=== PATIENT | female | born 1960 | race Caucasian/White ===

== ENCOUNTER 2021-08-04 06:52 | Day surgery (SDC) | payer BC, OTHER ==
[~2021-08-04 06:52] MED LIST: Lactated Ringers 1,000 ML IV SCH
[2021-08-04] MEDS ORDERED: Propofol 200 MG/20 ML SDV ONE ×3 (07:22→08:58)
[2021-08-04] MEDS ORDERED: fentaNYL 100 MCG/2 ML SDV ONE (07:22)
--- NOTE | 2021-08-04 07:34 | PCM.PREANE ---
Preanesthetic Assessment - Anesthesia/Transfusion/Family Hx Anesthesia History: Prior Anesthesia Without Reaction Family History of Anesthesia Reaction: No Transfusion History: No Prior Transfusion(s) - Review of Systems General: No Symptoms Pulmonary: No Symptoms Cardiovascular: No Symptoms Gastrointestinal: No Symptoms Neurological: No Symptoms Other: Reports: None - Physical Assessment NPO Status Date: 08/04/21 NPO Status Time: 00:00 Vital Signs: Last Vital Signs Temp 97.3 F 08/04/21 07:00 Pulse 70 08/04/21 07:00 Resp 15 08/04/21 07:00 BP 128/65 08/04/21 07:00 Pulse Ox 99 08/04/21 07:00 Height: 5 ft 1 in Weight: 114 lb ASA Class: 2 Mental Status: Alert & Oriented x3 Airway Class: Mallampati = 1 Dentition: Reports: Normal Dentition ROM/Head Extension: Full Lungs: Clear to Auscultation, Normal Respiratory Effort Cardiovascular: Regular Rate, Regular Rhythm - Lab Values: Laboratory Last Values SARS-CoV-2 RNA (BONITA) NEGATIVE (NEGATIVE) 08/04/21 06:12 - Allergies Allergies/Adverse Reactions: Allergies Allergy/AdvReac Type Severity Reaction Status Date / Time No Known Allergies Allergy Verified 07/31/21 08:22 - Acknowledgements Anesthesia Type Planned: General Anesthesia Pt an Appropriate Candidate for the Planned Anesthesia: Yes Alternatives and Risks of Anesthesia Discussed w Pt/Guardian: Yes Pt/Guardian Understands and Agrees with Anesthesia Plan: Yes PreAnesthesia Questionnaire HEENT History: Reports: Other (See Below) Other HEENT History: wears glasses, has bottom partial Cardiovascular History: Reports: None Respiratory History: Reports: None Gastrointestinal History: Reports: GERD Genitourinary History: Reports: None Musculoskeletal History: Reports: None Neurological History: Reports: None Psychiatric History: Reports: None Endocrine/Metabolic History: Reports: None Hematologic History: Reports: None Immunologic History: Reports: None Oncologic (Cancer) History: Reports: None Dermatologic History: Reports: None - Past Surgical History Head Surgeries/Procedures: Reports: None HEENT Surgical History: Reports: None Cardiovascular Surgical History: Reports: None Respiratory Surgical History: Reports: None GI Surgical History: Reports: Colonoscopy, Hernia, Inguinal Female Surgical History: Reports: Hysterectomy, Salpingo-Oophorectomy Endocrine Surgical History: Reports: None Neurological Surgical History: Reports: None Musculoskeletal Surgical History: Reports: None Oncologic Surgical History: Reports: None Dermatological Surgical History: Reports: None - SUBSTANCE USE Tobacco Use Status *Q: Former Tobacco User Tobacco Use Within Last Twelve Months: No - HOME MEDS Home Medications: Home Meds Black Cohosh 40 mg PO DAILY 07/31/21 [History] Cholecalciferol (Vitamin D3) [Vitamin D3] 5,000 units PO DAILY 07/31/21 [History] Clobetasol [Clobetasol Propionate 0.05% Cream] 1 applic TOP ASDIRECTED PRN 07/31/21 [History] Cyanocobalamin (Vitamin B-12) [Vitamin B-12] 1,000 mcg PO DAILY 07/31/21 [History] Estradiol Acetate [Femring] 1 device VAG ONETIME 07/31/21 [History] L.acidoph,Paracasei, B.lactis [Probiotic] 1 tab PO DAILY 07/31/21 [History] Magnesium Oxide [Magnesium] 400 mg PO DAILY 07/31/21 [History] Multivit-Min/Folic Acid/Biotin [Hair, Skin and Nails Caplet] 1 tab PO DAILY 07/31/21 [History] Omeprazole Magnesium [Prilosec Otc] 20 mg PO DAILY 07/31/21 [History] Tolterodine Tartrate 2 mg PO DAILY 07/31/21 [History] - CURRENT (IN HOUSE) MEDS Current Meds: Current Medications Lactated Ringer's (Ringers, Lactated) 1,000 mls @ 125 mls/hr IV ASDIRECTED ALENA Last Admin: 08/04/21 07:32 Dose: 125 mls/hr Documented by: Discontinued Medications Fentanyl (Fentanyl 100 Mcg/2 Ml Sdv) Confirm Administered Dose 100 mcg .ROUTE .STK-MED ONE Stop: 08/04/21 07:23 Lidocaine HCl (Lidocaine 1% 5 Ml Sdv) Confirm Administered Dose 5 ml .ROUTE .STK-MED ONE Stop: 08/04/21 07:23 Propofol (Propofol 200 Mg/20 Ml Sdv) Confirm Administered Dose 400 mg .ROUTE .STK-MED ONE Stop: 08/04/21 07:23
[2021-08-04] MEDS ORDERED: ePHEDrine 50 MG/ML SDV ONE (08:12)
[2021-08-04] MEDS ORDERED: Lactated Ringers 1,000 ML IV SCH (09:30)
--- NOTE | 2021-08-04 09:31 | PCM.OPNOTE ---
- General Post-Op/Procedure Note Date of Surgery/Procedure: 08/04/21 Operative Procedure(s): Colonoscopy Pre Op Diagnosis: Desire for colorectal cancer screening. Post-Op Diagnosis: Very poor prep. No evidence of neoplasia. Anesthesia Technique: MAC (ASA II) Primary Surgeon: Rancho Burrell Cheese Weigher: Juventino Pacheco Condition: Good Free Text/Narrative:: DICTATION 889168 CPT CODE 78064
--- NOTE | 2021-08-04 09:51 | PCM.POSTAN ---
POST ANESTHESIA ASSESSMENT - MENTAL STATUS Mental Status: Alert, Oriented - VITAL SIGNS Vital Signs: Last Vital Signs Temp 97.3 F 08/04/21 09:27 Pulse 68 08/04/21 09:42 Resp 20 08/04/21 09:42 BP 105/53 L 08/04/21 09:42 Pulse Ox 93 L 08/04/21 09:42 - RESPIRATORY Respiratory Status: Respiratory Rate WNL, Airway Patent, O2 Saturation Stable - CARDIOVASCULAR CV Status: Pulse Rate WNL, Blood Pressure Stable - GASTROINTESTINAL GI Status: No Symptoms - POST OP HYDRATION Hydration Status: Adequate & Stable
--- NOTE | 2021-08-04 09:52 | PCM48HPAN ---
Post Anesthesia Note - EVALUATION WITHIN 48HRS OF ANESTHETIC Vital Signs in Normal Range: Yes Patient Participated in Evaluation: Yes Respiratory Function Stable: Yes Airway Patent: Yes Cardiovascular Function Stable: Yes Hydration Status Stable: Yes Pain Control Satisfactory: Yes Nausea and Vomiting Control Satisfactory: Yes Mental Status Recovered: Yes Vital Signs: Last Vital Signs Temp 97.3 F 08/04/21 09:27 Pulse 68 08/04/21 09:42 Resp 20 08/04/21 09:42 BP 105/53 L 08/04/21 09:42 Pulse Ox 93 L 08/04/21 09:42
--- NOTE | 2021-08-04 14:23 | OR ---
SURGEON: Rancho Burrell M.D. DATE OF PROCEDURE: 08/04/2021 OPERATION PERFORMED: Colonoscopy. PRIMARY SURGEON: Rancho Burrell M.D. ASSET ADMINISTRATOR: Paper Roll Machine Operator: KRISTEN Goncalves student. ANESTHESIA: MAC. ASA CLASSIFICATION: II. PREOPERATIVE DIAGNOSIS: Desire for colorectal cancer screening. POSTOPERATIVE DIAGNOSIS: No evidence of neoplasia. DESCRIPTION OF PROCEDURE: The patient was taken to the endoscopy room and positioned on the endoscopy table in the left lateral decubitus position. Time-out was called for appropriate identification of the patient and procedure. Monitored anesthesia care was provided. The colonoscope was inserted into the rectum and immediately we were met with a significant amount of liquid fecal material. With great difficulty, I was able to advance the colonoscope to the cecum. The cecum was identified by internal landmarks and external pressure. The colonoscope having been inserted to the cecum was retroflexed to visualize the ascending colon from below and then straightened and slowly withdrawn. Again, the prep was very poor with a significant amount of liquid fecal material. Certainly, a small polyp could have been missed in the course of this examination. The cecum, ascending colon, hepatic flexure, transverse colon, splenic flexure, descending colon, sigmoid colon, and rectum were fairly well visualized, although we did aspirate a significant amount of liquid fecal material. I did not see any large polyps. There was no obstructing neoplasm and I did not see any evidence of sigmoid diverticulosis. Once the colonoscope was withdrawn to the rectum, it was retroflexed to visualize the anal orifice from above. No tumors or polyps were seen, and there were no acute hemorrhoidal changes. The colonoscope was then straightened, the rectum aspirated, and the colonoscope removed. The patient tolerated the procedure well and was taken to recovery room in satisfactory condition. YARA / JACE /[id number]
== END 2021-08-04 10:15 | disposition home or self-care (01) ==
LOC: MW.SDS 06:52
PROVIDERS: ATTEND Surgery
DX: Z12.11 Encounter for screening for malignant neoplasm of colon (principal); K40.90 Unilateral inguinal hernia, without obstruction or gangrene, not specified as recurrent; K21.9 Gastro-esophageal reflux disease without esophagitis; Z79.899 Other long term (current) drug therapy; Z98.890 Other specified postprocedural states; Z87.891 Personal history of nicotine dependence; Z01.812 Encounter for preprocedural laboratory examination; Z20.822 Contact with and (suspected) exposure to COVID-19
CPT/HCPCS: 45378; 87635; J2704; J3010; J7120; 00812; U0002

== ENCOUNTER 2021-08-07 06:43 | Day surgery (SDC) | payer BC, OTHER ==
[2021-08-07] MEDS ORDERED: Scopolamine 1.5 MG Transdermal Patch ONE (06:49)
[2021-08-07] MEDS ORDERED: Ropivacaine 0.5% 5 MG/ML 30 ML SDV ONE (06:55)
[2021-08-07] MEDS ORDERED: Lactated Ringers 1,000 ML IV SCH ×2 (07:00→09:30)
[2021-08-07] MEDS ORDERED: ceFAZolin 1 GM in Premix Bag 1 BAG IV ONE (07:00)
[2021-08-07] MEDS ORDERED: Naloxone 0.4 MG/ML SDV IVPUSH PRN ×2 (07:04→07:13)
[2021-08-07] MEDS ORDERED: Ondansetron 4 MG/2 ML SDV IVPUSH PRN ×3 (07:04→09:18)
[2021-08-07] MEDS ORDERED: Morphine 2 MG/ML SYRINGE IVPUSH PRN ×3 (07:04→09:43)
[2021-08-07] MEDS ORDERED: fentaNYL 100 MCG/2 ML SDV IVPUSH PRN ×2 (07:04→07:13)
[2021-08-07] MEDS ORDERED: Albuterol 0.083% 2.5 MG/3 ML Neb Soln NEB PRN ×2 (07:04→07:13)
[2021-08-07] MEDS ORDERED: HYDROmorphone 1 MG/ML Syringe IVPUSH PRN ×2 (07:04→07:13)
[2021-08-07] MEDS ORDERED: Metoclopramide 10 MG/2 ML SDV IVPUSH PRN ×2 (07:04→07:13)
--- NOTE | 2021-08-07 07:10 | PCM.PREANE ---
Preanesthetic Assessment - Anesthesia/Transfusion/Family Hx Anesthesia History: Prior Anesthesia Without Reaction Family History of Anesthesia Reaction: No Transfusion History: No Prior Transfusion(s) - Review of Systems General: No Symptoms Pulmonary: No Symptoms Cardiovascular: No Symptoms Gastrointestinal: No Symptoms Neurological: No Symptoms Other: Reports: None - Physical Assessment NPO Status Date: 08/07/21 NPO Status Time: 00:00 Height: 1.55 m Weight: 51.71 kg ASA Class: 2 Mental Status: Alert & Oriented x3 Airway Class: Mallampati = 2 Dentition: Reports: Normal Dentition Thyro-Mental Finger Breadths: 3 Mouth Opening Finger Breadths: 3 ROM/Head Extension: Full Lungs: Clear to Auscultation, Normal Respiratory Effort Cardiovascular: Regular Rate, Regular Rhythm - Allergies Allergies/Adverse Reactions: Allergies Allergy/AdvReac Type Severity Reaction Status Date / Time No Known Allergies Allergy Verified 07/31/21 08:22 - Blood Blood Available: No - Acknowledgements Anesthesia Type Planned: General Anesthesia, Regional Block (scopo patch) Pt an Appropriate Candidate for the Planned Anesthesia: Yes Alternatives and Risks of Anesthesia Discussed w Pt/Guardian: Yes Pt/Guardian Understands and Agrees with Anesthesia Plan: Yes PreAnesthesia Questionnaire HEENT History: Reports: Other (See Below) Other HEENT History: wears glasses, has bottom partial Cardiovascular History: Reports: None Respiratory History: Reports: None Gastrointestinal History: Reports: GERD Genitourinary History: Reports: None Musculoskeletal History: Reports: None Neurological History: Reports: None Psychiatric History: Reports: None Endocrine/Metabolic History: Reports: None Hematologic History: Reports: None Immunologic History: Reports: None Oncologic (Cancer) History: Reports: None Dermatologic History: Reports: None - Past Surgical History Head Surgeries/Procedures: Reports: None HEENT Surgical History: Reports: None Cardiovascular Surgical History: Reports: None Respiratory Surgical History: Reports: None GI Surgical History: Reports: Colonoscopy, Hernia, Inguinal Female Surgical History: Reports: Hysterectomy, Salpingo-Oophorectomy Endocrine Surgical History: Reports: None Neurological Surgical History: Reports: None Musculoskeletal Surgical History: Reports: None Oncologic Surgical History: Reports: None Dermatological Surgical History: Reports: None - SUBSTANCE USE Tobacco Use Status *Q: Former Tobacco User Tobacco Use Within Last Twelve Months: No - HOME MEDS Home Medications: Home Meds Black Cohosh 40 mg PO DAILY 07/31/21 [History] Cholecalciferol (Vitamin D3) [Vitamin D3] 5,000 units PO DAILY 07/31/21 [History] Clobetasol [Clobetasol Propionate 0.05% Cream] 1 applic TOP ASDIRECTED PRN 07/31/21 [History] Cyanocobalamin (Vitamin B-12) [Vitamin B-12] 1,000 mcg PO DAILY 07/31/21 [History] Estradiol Acetate [Femring] 1 device VAG ONETIME 07/31/21 [History] L.acidoph,Paracasei, B.lactis [Probiotic] 1 tab PO DAILY 07/31/21 [History] Magnesium Oxide [Magnesium] 400 mg PO DAILY 07/31/21 [History] Multivit-Min/Folic Acid/Biotin [Hair, Skin and Nails Caplet] 1 tab PO DAILY 07/31/21 [History] Omeprazole Magnesium [Prilosec Otc] 20 mg PO DAILY 07/31/21 [History] Tolterodine Tartrate 2 mg PO DAILY 07/31/21 [History] - CURRENT (IN HOUSE) MEDS Current Meds: Current Medications Albuterol (Albuterol 0.083% 2.5 Mg/3 Ml Neb Soln) 2.5 mg NEB ONETIME PRN PRN Reason: Wheezing Droperidol (Droperidol 5 Mg/2 Ml Sdv) 0.625 mg IVPUSH ONETIME PRN PRN Reason: Nausea/Vomiting Fentanyl (Fentanyl 100 Mcg/2 Ml Sdv) 50 mcg IVPUSH Q5M PRN PRN Reason: Pain (mild 1-3) Hydromorphone HCl (Hydromorphone 1 Mg/Ml Syringe) 1 mg IVPUSH Q10M PRN PRN Reason: Pain (moderate 4-6) Cefazolin Sodium/Dextrose 1 gm (/ Premix) 50 mls @ 100 mls/hr IV ONETIME ONE Stop: 08/07/21 07:29 Lactated Ringer's (Ringers, Lactated) 1,000 mls @ 125 mls/hr IV ASDIRECTED ALENA Metoclopramide HCl (Metoclopramide 10 Mg/2 Ml Sdv) 10 mg IVPUSH ONETIME PRN PRN Reason: Nausea/Vomiting Morphine Sulfate (Morphine 2 Mg/Ml Syringe) 2 mg IVPUSH Q10M PRN PRN Reason: Pain (severe 7-10) Naloxone HCl (Naloxone 0.4 Mg/Ml Sdv) 0.1 mg IVPUSH ASDIRECTED PRN PRN Reason: Respiratory Depression Ondansetron HCl (Ondansetron 4 Mg/2 Ml Sdv) 4 mg IVPUSH ONETIME PRN PRN Reason: Nausea/Vomiting Discontinued Medications Ropivacaine (Ropivacaine 0.5% 5 Mg/Ml 30 Ml Sdv) Confirm Administered Dose 30 ml .ROUTE .STK-MED ONE Stop: 08/07/21 06:56 Scopolamine (Scopolamine 1.5 Mg Transdermal Patch) Confirm Administered Dose 1.5 mg .ROUTE .STK-MED ONE Stop: 08/07/21 06:50
[2021-08-07] MEDS ORDERED: fentaNYL 100 MCG/2 ML SDV ONE (07:25)
[2021-08-07] MEDS ORDERED: Dexmedetomidine 200 MCG/2 ML SDV ONE (07:25)
[2021-08-07] MEDS ORDERED: Propofol 200 MG/20 ML SDV ONE (07:25)
[2021-08-07] MEDS ORDERED: Bupivacaine 0.5% 30 ML SDV ONE (07:29)
[2021-08-07] MEDS ORDERED: ceFAZolin 1 GM Vial ONE (07:29)
[2021-08-07] MEDS ORDERED: Sodium Chloride 0.9% 20 ML ONE (07:29)
[2021-08-07] MEDS ORDERED: Midazolam 1 MG/ML 2 ML SDV ONE (07:31)
[2021-08-07] MEDS ORDERED: Dexamethasone 4 MG/ML 5 ML MDV ONE (07:36)
[2021-08-07] MEDS ORDERED: ePHEDrine 50 MG/ML SDV ONE (08:20)
--- NOTE | 2021-08-07 08:26 | PCM.SN.2 ---
- Free Text/Narrative Note: Anesthesia Start: 0758 Anesthesia Stop: 0800 Following informed consent and a block time out, LEFT sided TAPS and Left Rectus sheath blocks were performed with a 20g 6inch lowe echogenic needle under US guidance. 30 cc total of 0.5% Naropin was injected in 5cc increments. No complications. Patient tolerated procedure well. Guillermo Gifford MD Time Documentation
[2021-08-07] MEDS ORDERED: Rocuronium Bromide 50 MG/5 ML Syringe ONE (08:37)
[2021-08-07] MEDS ORDERED: Ketorolac 30 MG/ML SDV ONE (08:37)
[2021-08-07] MEDS ORDERED: Sugammadex Sodium 200 MG/2 ML VIAL ONE (08:37)
[2021-08-07] MEDS ORDERED: Ondansetron 4 MG/2 ML SDV ONE (08:57)
[2021-08-07] MEDS ORDERED: Acetaminophen/HYDROcodone 325-5 MG Tab PO PRN (09:18)
--- NOTE | 2021-08-07 09:23 | PCM.OPNOTE ---
- General Post-Op/Procedure Note Date of Surgery/Procedure: 08/07/21 Operative Procedure(s): Repair left inguinal hernia with large Bard PerFix plug and patch Pre Op Diagnosis: Reducible left inguinal hernia Post-Op Diagnosis: Same Anesthesia Technique: General ET Tube (ASA II) Primary Surgeon: Rancho Burrell Occupational Therapist Aide: Juventino Pacheco Fluid Replacement, Intraop: 1,000 EBL in mLs: 5 Condition: Good Free Text/Narrative:: DICTATION 473179 CPT CODE 15006
--- NOTE | 2021-08-07 09:53 | PCM.POSTAN ---
POST ANESTHESIA ASSESSMENT - MENTAL STATUS Mental Status: Alert, Oriented - VITAL SIGNS Vital Signs: Last Vital Signs Temp 98.1 F 08/07/21 09:18 Pulse 64 08/07/21 09:43 Resp 13 08/07/21 09:43 BP 99/52 L 08/07/21 09:43 Pulse Ox 94 L 08/07/21 09:43 - RESPIRATORY Respiratory Status: Respiratory Rate WNL, Airway Patent, O2 Saturation Stable - CARDIOVASCULAR CV Status: Pulse Rate WNL, Blood Pressure Stable - GASTROINTESTINAL GI Status: No Symptoms - POST OP HYDRATION Hydration Status: Adequate & Stable
--- NOTE | 2021-08-07 09:53 | PCM48HPAN ---
Post Anesthesia Note - EVALUATION WITHIN 48HRS OF ANESTHETIC Vital Signs in Normal Range: Yes Patient Participated in Evaluation: Yes Respiratory Function Stable: Yes Airway Patent: Yes Cardiovascular Function Stable: Yes Hydration Status Stable: Yes Pain Control Satisfactory: Yes Nausea and Vomiting Control Satisfactory: Yes Mental Status Recovered: Yes Vital Signs: Last Vital Signs Temp 98.1 F 08/07/21 09:18 Pulse 64 08/07/21 09:43 Resp 13 08/07/21 09:43 BP 99/52 L 08/07/21 09:43 Pulse Ox 94 L 08/07/21 09:43
--- NOTE | 2021-08-07 09:54 | OR ---
SURGEON: Rancho Burrell M.D. DATE OF PROCEDURE: 08/07/2021 OPERATION PERFORMED: Repair of left inguinal hernia with large Bard PerFix plug and patch. PRIMARY SURGEON: Rancho Burrell M.D. BOTANY TEACHER: Pediatric Immunologist: KRISTEN Goncalves student. ANESTHESIA: General endotracheal. ASA CLASSIFICATION: II. PREOPERATIVE DIAGNOSIS: Reducible left inguinal hernia. POSTOPERATIVE DIAGNOSIS: Reducible left inguinal hernia. ESTIMATED BLOOD LOSS: 5 mL. INTRAOPERATIVE FLUID REPLACEMENT: 1000 mL of crystalloid. DESCRIPTION OF PROCEDURE: The patient was taken to the operating room and placed on the operating table in the supine position. Time-out was called for appropriate identification of the patient and procedure. The surgical site had been marked with the patient's assistance prior to entering the operating room. Following satisfactory attainment of general endotracheal anesthesia, nerve block was accomplished by Dr. Gifford. Skin was then prepped with DuraPrep solution. Sterile drapes were applied. The skin overlying the hernia was infiltrated with 0.5% Marcaine solution using a total of 10 mL. Skin incision was made and deepened through the subcutaneous tissue obtaining hemostasis with the use of electrocautery. Dissection was carried down to the external oblique fascia, which was opened in the direction of its fibers. The round ligament was identified and encircled with a Osmar drain, and care was taken to preserve and protect the ilioinguinal nerve. Basically, the floor was completely disrupted. It was necessary to use a large Bard PerFix plug and patch. This was brought to the operating table and soaked in 1% Ancef solution. The plug was placed into the floor and secured inferiorly to the inguinal ligament and superiorly to the transversalis fascia with 0 Ethibond. The patch was then placed over this, and repair was completed beginning medially and inferiorly to Blaze's ligament, transitioning to the inguinal ligament, and superiorly to transversalis fascia. All sutures of 0 Ethibond were placed under direct vision and held with individual hemostats. The wings of the patch were brought around the round ligament laterally and also secured with 0 Ethibond suture. All sutures except the lateral suture were then tied. The patient was given a Valsalva maneuver to 35 cm, and the repair appeared solid. The lateral suture was then secured. The wound was then inspected for hemostasis, and small bleeding sites were electrocoagulated. The wound was irrigated with 1% Ancef solution. The external oblique fascia was then reapproximated over the round ligament with running 3-0 Vicryl. The subcutaneous tissue was closed with running 3-0 Vicryl. Skin edges were reapproximated with subcuticular 4-0 Monocryl reinforced with half-inch Steri-Strips. Sterile Tegaderm pad was placed as a dressing. Sponge, needle, and instrument counts were all correct. Following emergence from anesthesia and extubation, the patient was taken to recovery room in stable condition. YARA MCCORMICK /[id number]
== END 2021-08-07 10:40 | disposition home or self-care (01) ==
LOC: MW.SDS 06:43
PROVIDERS: ATTEND Surgery
DX: K40.90 Unilateral inguinal hernia, without obstruction or gangrene, not specified as recurrent (principal); Z79.899 Other long term (current) drug therapy; Z98.890 Other specified postprocedural states; Z87.891 Personal history of nicotine dependence
CPT/HCPCS: 49505; A9270; C1781; J0690; J1100; J1885; J2250; J2704; J2795; J3010; J3490; J7120; 00830; 64486; J2405